=== PATIENT | female | born 1980 | race Caucasian/White ===

== ENCOUNTER 2019-03-31 09:28 | Emergency (ER) | payer OTHER ==
[~2019-03-31] VITALS: Ht 160 cm; Wt 64.9 kg
[~2019-03-31 09:28] MED LIST: LEVAQUIN500 MG PO; LEXAPRO10 MG PO; ONDANSETRON ODT8 MG PO; PERCOCET 7.5-31 EACH PO
--- OUTSIDE RECORDS SUMMARY | 2019-03-31 09:30 | XMS ---
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 Tha VISIT COUNT (12 MO.) [address] Anthony Tami TOTAL 3 NOTE: Visits indicate total known visits. ED/UCC VISIT TRACKING (12 MO.) 03/31/2019 09:29 [facility] TYPE: Emergency COMPLAINT: - ABD PAIN 09/14/2018 17:33 [facility] TYPE: Emergency DIAGNOSES: - [facility] DIAGNOSES: - Strain of muscle, fascia and tendon at neck level, init - Contusion of left shoulder, initial encounter - Strain of unsp musc/fasc/tend at forarm lv, left arm, init - [facility]UALT INPATIENT VISIT TRACKING (12 MO.) No inpatient visits to display in this time frame [id number]
== END 2019-03-31 11:27 | disposition home or self-care (01) ==
LOC: ED 09:28
DX: R10.31 Right lower quadrant pain (principal); G89.29 Other chronic pain; F17.200 Nicotine dependence, unspecified, uncomplicated; Z71.6 Tobacco abuse counseling; Z79.899 Other long term (current) drug therapy
CPT/HCPCS: 80053; 83690; 85025; 96361; 96374; 96375; 99284-25; 99406; C9113; J1200; J1630; J1885; J7030